=== PATIENT | male | born 1960 | race Hispanic/Latino ===

== ENCOUNTER 2019-10-21 11:00 | Emergency (ER) | payer BC ==
[2019-10-21] MEDS ORDERED: Morphine 4 MG/ML VIAL ONE ×2 (11:38→11:44)
[2019-10-21] MEDS ORDERED: Ondansetron PF 4 MG/2 ML Vial ONE ×2 (11:38→11:44)
[2019-10-21 11:39] LABS: #Lymphocytes 0.8 thou/uL (1.20-3.40); #Monocytes 0.7 thou/uL (0.11-0.59); #Neutrophils 10.9 thou/uL (1.40-6.50); %Basophils 0.2 % (0.0-1.0); %Eosinophils 0.2 % (0.0-10.0); %Lymphocytes 6.8 % (21.0-51.0); %Monocytes 5.6 % (0.0-10.0); %Neutrophils 87.2 % (42.0-75.0); Hemoglobin 15.5 g/dL (14.0-18.0); Mean Corpuscular HGB CONC 33.7 g/dL (32.0-36.0); Mean Corpuscular Hemoglobin 29.6 pg (27.0-31.0); Mean Platelet Volume 7.4 fL (7.4-10.4); Platelet Count 219 thou/uL (130-400); RBC Distribution Width 11.8 % (11.5-14.5); Red Blood Cell (RBC) Count 5.21 mill/uL (4.70-6.10); White Blood Cell (WBC) Count 12.5 thou/uL (4.8-10.8)
[2019-10-21 12:03] LABS: ALT (SGPT) 40 U/L (8-55); AST (SGOT) 23 U/L (5-34); Albumin 4.5 g/dL (3.4-4.8); Alkaline Phosphatase 85 U/L (40-110); Anion Gap 13 mmol/L (10-20); BUN (Urea Nitrogen) 22 mg/dL (8.4-25.7); Bilirubin, Total 0.6 mg/dL (0.2-1.2); Calc. Creatinine Clearance 0 mL/min (70-130); Calcium 9.4 mg/dL (7.8-10.44); Carbon Dioxide 27 mmol/L (23-31); Chloride 103 mmol/L (98-107); Estimated GFR-MDRD 56; Globulin 3.5 g/dL (2.4-3.5); Glucose 142 mg/dL (80-115); Potassium 4.1 mmol/L (3.5-5.1); Sodium 139 mmol/L (136-145)
[2019-10-21 12:15] LABS: Bacteria/HPF None Seen HPF (None Seen); Bilirubin Negative (Negative); Blood, Urine Trace (Negative); Clarity Clear (Clear); Glucose, Urine (Dipstick) Normal (Negative); Leukocyte Negative Leu/uL (Negative); Protein, Urine (Dipstick) Negative (Neg-Trace); RBC/HPF 0-3 HPF (0-3); Squamous Epithelial None Seen HPF (0-3); WBC/HPF 0-3 HPF (0-3)
[2019-10-21 12:32] LABS: Nitrite Unable to Interpret (Negative)
--- NOTE | 2019-10-21 12:55 | CT ---
CT ABDOMEN AND PELVIS: 10/21/2019 PROVIDED CLINICAL HISTORY: Right flank pain. FINDINGS: The visualized lung bases are free of significant opacity. There is a 4-5 mm right distal ureteral calculus with associated hydroureter and moderate right hydro nephrosis. There is conspicuous right perinephric fat stranding. There is a 3 mm superior pole right renal calculus. No left renal calculi are evident. The solid abdominal organs are suboptimally evaluated in the absence of contrast material but demonst rated an otherwise unremarkable unenhanced CT appearance. Changes of a prior cholecystectomy are note d. There is no bowel dilatation, additional inflammatory fat stranding, free fluid or free air apparent. The appendix appears normal. The osseous structures demonstrate no concerning lytic or blastic lesions. There is a bone island in the left proximal femur. IMPRESSION: 1. Obstructing 4-5 mm distal right ureteral calculus. 2. A 3 mm right renal calculus. POS: OLAMIDE
== END 2019-10-21 13:36 | disposition home or self-care (01) ==
LOC: ERS 11:00
DX: N13.2 Hydronephrosis with renal and ureteral calculous obstruction (principal); K21.9 Gastro-esophageal reflux disease without esophagitis
CPT/HCPCS: 36415; 74176; 80053; 81003; 81015; 85025; 96361; 96374; 96375; J2270; J2405